=== PATIENT | male | born 2000 | race Caucasian/White ===

== ENCOUNTER 2018-11-23 21:12 | Emergency (ER) | payer OTHER ==
[~2018-11-23] VITALS: Ht 180.3 cm; Wt 76.2 kg
[2018-11-23 21:25] VITALS: BP 130/90
--- NOTE | 2018-11-23 21:28 | NUR ---
TO LOBBY A/W BED AMBULATORY WITH PARENTS
--- NOTE | 2018-11-23 22:14 | NUR ---
PT AMBULATED TO ER BED 03
--- NOTE | 2018-11-23 22:30 | NUR ---
PT BIB MOTHER AND FATHER C/O LEFT LEG PAIN. MOTHER STATES PT WOKE UP THIS MORNING W/ BRUISING, SWELLING AND WARM TO TOUCH; DENIES TRAUMA OR INJURY. +AROM TO LEFT LEG, CAP REFIL <2. LEFT CALF IS WARM TO TOUCH, ECCYMOSIS, SKIN IS TAUGHT, CMS INTACT. PT ACTING APPROPRIATLY, SPEAKING IN CLEAR AND COMPLETE SENTENCES. BREATHING EQUAL AND UNLABORED. SAFETY PRECAUTIONS IN PLACE. PENDING ERMD EVAL. WILL CONTINUE TO MONITOR. PMH: AUTISM
[2018-11-24 00:04] LABS: BASOPHILS % (AUTO) 0.5 % (0.0-2.0); EOSINOPHILS # (AUTO) 0.1 K/uL (0-0.4); EOSINOPHILS % (AUTO) 1.2 % (0.0-4.0); HEMATOCRIT 42.4 % (36-52); HEMOGLOBIN 14.4 g/dL (12.0-18.0); LYMPHOCYTES # (AUTO) 1.2 K/uL (2.0-11.5); LYMPHOCYTES % (AUTO) 17.7 % (20.5-51.1); MEAN CORPUSCULAR HEMOGLOBIN 27 pg (27-31); MEAN CORPUSCULAR HGB CONC 34 g/dL (33-37); MEAN CORPUSCULAR VOLUME 80.4 fL (80-94); MONOCYTES # (AUTO) 0.3 K/uL (0.8-1.0); MONOCYTES % (AUTO) 4.9 % (1.7-9.3); NEUTROPHILS # (AUTO) 5.2 K/uL (1.8-7.7); NEUTROPHILS % (AUTO) 75.7 % (42.2-75.2); PLATELET COUNT (AUTO) 289 K/uL (140-450); RED BLOOD CELL COUNT(AUTO) 5.27 MIL/uL (4.20-6.10); RED CELL DISTRIBUTION WIDTH 13.8 % (11.6-13.7); WHITE BLOOD COUNT (AUTO) 6.8 K/uL (4.5-11.0)
--- NOTE | 2018-11-24 00:25 | NUR ---
ULTRASOUND AT BEDSIDE AT THIS TIME
--- NOTE | 2018-11-24 01:25 | NUR ---
Patient discharged with v/s stable. Patient acting appropriatly; denies pain at this time. Written and verbal after care instructions given and explained. Patient alert, oriented and verbalized understanding of instructions. Ambulatory with steady gait by mother. All questions addressed prior to discharge. ID band removed. Patient advised to follow up with PMD. Rx of Naprosyn given. Patient educated on indication of medication including possible reaction and side effects. Opportunity to ask questions provided and answered.
[2018-11-24 01:38] VITALS: BP 148/76
== END 2018-11-24 01:25 | disposition home or self-care (01) ==
LOC: MED 21:12
DX: S86.912A Strain of unspecified muscle(s) and tendon(s) at lower leg level, left leg, initial encounter (principal); X58.XXXA Exposure to other specified factors, initial encounter; Y93.89 Activity, other specified; Y92.89 Other specified places as the place of occurrence of the external cause; Y99.8 Other external cause status
CPT/HCPCS: 36415; 81002; 85025; 85379; 93971; 99284; Q0092